=== PATIENT | male | born 1980 | race Caucasian/White ===

== ENCOUNTER → 2020-08-08 | Outpatient (CLI) | payer OTHER | LOC: LAB 11:55 | PROVIDERS: ATTEND Family Medicine | DX: Z20.828 Contact with and (suspected) exposure to other viral communicable diseases (principal) ==

== ENCOUNTER → 2020-10-13 | Outpatient (CLI) | payer OTHER | LOC: LAB 08:48 | PROVIDERS: ATTEND Family Medicine | DX: Z20.828 Contact with and (suspected) exposure to other viral communicable diseases (principal) ==

== ENCOUNTER → 2021-04-30 | Outpatient (CLI) | payer OTHER ==
[2021-04-30 14:51] LABS: ABSOLUTE NEUTROPHILS 3.5 thou/uL (1.4-8.2); BASOPHILS 0.8 % (0.0-2.0); EOSINOPHILS 1.5 % (0.0-3.0); HEMATOCRIT 47.9 % (42.0-52.0); LYMPHOCYTES 36.6 % (24.0-44.0); MCH 30.3 pg (26.0-34.0); MCHC 33.4 g/dL (28.0-37.0); MCV 90.8 fL (80.0-100.0); MONOCYTES 8.3 % (1.0-8.0); PLATELET COUNT 272 thou/uL (150-400); POLYS 52.8 % (36.0-66.0); RBC 5.28 mil/uL (4.50-6.00); RDW 12.4 % (10.5-14.5); WBC 6.6 thou/uL (4.0-11.0)
[2021-04-30 14:55] LABS: ALBUMIN 4.2 g/dL (3.4-5.0); AMYLASE 60 U/L (25-115); ANION GAP 9 mmol/L (7-16); BUN 13 mg/dL (7-18); CALCIUM 9.4 mg/dL (8.5-10.1); CHLORIDE 102 mmol/L (98-107); CHOLESTEROL 248 mg/dL (<200); CO2 29 mmol/L (21-32); CREATININE 1.3 mg/dL (0.7-1.3); GLUCOSE 98 mg/dL (74-106); HDL CHOLESTEROL 49 mg/dL (>40); LDL CHOLESTEROL 141 mg/dL (<100); LIPASE 129 U/L (73-393); POTASSIUM 4.3 mmol/L (3.5-5.1); SGOT 31 U/L (15-37); SGPT 67 U/L (30-65); SODIUM 140 mmol/L (136-145); TC:HDL 5.1 Ratio (Not establshd); TOTAL BILIRUBIN 0.4 mg/dL (0.2-1.0); TOTAL PROTEIN 7.6 g/dL (6.4-8.2); TRIGLYCERIDE 293 mg/dL (<150); VLDL 59 mg/dL (<40)
[2021-05-01 10:08] LABS: ANA INTERPRETATION Negative (Negative)
== END ==
LOC: CAT 14:11
PROVIDERS: ATTEND Nurse Practitioner
DX: R59.0 Localized enlarged lymph nodes (principal); K76.0 Fatty (change of) liver, not elsewhere classified; R10.12 Left upper quadrant pain; R53.82 Chronic fatigue, unspecified; M79.622 Pain in left upper arm; M79.621 Pain in right upper arm; Z90.49 Acquired absence of other specified parts of digestive tract

== ENCOUNTER → 2021-05-13 | Outpatient (CLI) | payer OTHER | LOC: MRI 08:32 | PROVIDERS: ATTEND Nurse Practitioner | DX: K76.0 Fatty (change of) liver, not elsewhere classified (principal) ==

== ENCOUNTER → 2021-06-29 | Outpatient (CLI) | payer OTHER ==
[2021-06-29 14:51] LABS: INR 0.97; PROTIME 10.6 Seconds (10.5-12.1)
[2021-06-30 09:07] LABS: HAV IgM AB (ANTI-HAV IgM) Negative (Negative); HEPATITIS B SURFACE AG Negative (Negative); HEPATITIS C VIRUS AB <0.1 (0.0-0.9)
== END ==
LOC: LAB 11:12
PROVIDERS: ATTEND Internal Medicine Gastroenterology
DX: R11.0 Nausea (principal); R10.9 Unspecified abdominal pain

== ENCOUNTER → 2021-07-20 | Outpatient (CLI) | payer OTHER ==
[~2021-07-20] VITALS: Ht 180.3 cm; Wt 104.3 kg
[~2021-07-20] MED LIST: FINASTERIDE1 MG PO; MAGNESIUM250 M1 PO; PROBIOTIC1 EAC7 PO; SUPER THERAVIT1 EACH PO
--- NOTE | 2021-07-22 18:06 | PATH ---
[facility] [address] [place] [address] PATHOLOGY RPT PROCEDURE Name: BRISA PELAEZ Room #: REG NAJMA Young#: [id number] Admission: 07/20/21 Date of : 84 Discharge: Report #: [id number] Path Case #: [id number] Accession Number: [id number] . 01 Material submitted: . stomach - RANDOM GASTRIC BIOPSY RULE OUT H. PYLORI. Modifiers: GASTRIC . 01 Clinical history: . EGD LUQ ABD. PAIN GASTRITIS DTS/EGD/LUQ PAIN . 02 Diagnosis: Gastric mucosa, random gastric, endoscopic biopsy: - Moderate reactive gastropathy with focal chronic active gastritis. - Negative for intestinal metaplasia or atrophy. - Negative for Helicobacter pylori (properly controlled immunohistochemical stain performed). (IUV/db; 07/22/2021) [facility]Q 07/22/2021 1321 Local . 02 Electronically signed: . Agustina Wilson MD, Pathologist NPI- [id number] . 01 Gross description: . The specimen is received in formalin, labeled "Brisa Pelaez random gastric BX". Received are 5 segments of pale jones tissue ranging in size from 0.4 to 0.6 cm in maximum dimensions. The specimen is submitted entirely in cassette A1.([facility]; 07/21/2021) [facility] 07/21/[address] [place] [address] . 02 Pathologist provided ICD-10: K29.50, K31.9 . 02 CPT . 441525, [id number] Specimen Comment: A courtesy copy of this report has been sent to [phone] Specimen Comment: [id number] Specimen Comment: Report sent to / DR SUN Performed at: [address] [id number] MD Ho Verde MD Phone: [phone] Performed at: 02 [facility] [address] [place] [address] PATHOLOGY RPT PROCEDURE Name: BRISA PELAEZ Room #: REG CLI M.Jenny.#: [id number] Admission: 07/20/21 Date of : 84 Discharge: Report #: [id number] Path Case #: [id number] [address] [place] [id number] MD Agustina Wilson MD Phone: [phone]
== END | disposition home or self-care (01) ==
LOC: CAT → GI 06:59
PROVIDERS: ATTEND Internal Medicine Gastroenterology
DX: R10.12 Left upper quadrant pain (principal); R11.0 Nausea; K29.50 Unspecified chronic gastritis without bleeding; K31.9 Disease of stomach and duodenum, unspecified; E78.00 Pure hypercholesterolemia, unspecified; F41.9 Anxiety disorder, unspecified; K21.9 Gastro-esophageal reflux disease without esophagitis; Z98.890 Other specified postprocedural states; Z79.899 Other long term (current) drug therapy; Z88.8 Allergy status to other drugs, medicaments and biological substances; Z20.822 Contact with and (suspected) exposure to COVID-19
CPT/HCPCS: 62110; 62900